=== PATIENT | female | born 1945 | race Caucasian/White ===

== ENCOUNTER 2017-02-17 09:03 | Day surgery (SDC) | payer MEDICARE, BC ==
[~2017-02-17 09:03] MED LIST: BESIFLOXACIN HCL 0.6% OPH SUSP 5 ML BOTTLE OD PRN; CYCLOPENTOLATE 0.2%/PHENYLEPHRINE 1% OPH SOLN 2 ML OD PRN; KETOROLAC TROMETHAMINE 0.45% 4 DROP/0.4 ML DROPERETTE OD PRN; MIDAZOLAM 2 MG/2 ML INJ ONE; TETRACAINE HCL 0.5% OPH SOLN 0.6 ML DROPERETTE OD PRN; TROPICAMIDE 1% OPH SOLN 3 ML OD PRN
[2017-02-17] MEDS ORDERED: LIDOCAINE 1% INJ-PF (10 MG/ML) 30 ML SDV ONE (09:06)
[2017-02-17] MEDS ORDERED: EPINEPHRINE INJ/PF 1 MG/1 ML AMPULE ONE (09:06)
[2017-02-17] MEDS ORDERED: CHONDR SU A NA/HYALUR INTRAOC KIT (SURGICARE) ONE (09:06)
[2017-02-17] MEDS ORDERED: TOBRAMYCIN SULFATE/DEXAMETH OPH OINTMENT 3.5 GM ONE (09:06)
[2017-02-17] MEDS: CYCLOPENTOLATE 0.2%/PHENYLEPHRINE 1% OPH SOLN 2 ML OD PRN ×3 (09:32→09:58)
[2017-02-17] MEDS: TROPICAMIDE 1% OPH SOLN 3 ML OD PRN ×3 (09:32→09:58)
[2017-02-17] MEDS: BESIFLOXACIN HCL 0.6% OPH SUSP 5 ML BOTTLE OD PRN ×2 (09:33→09:45)
[2017-02-17] MEDS: TETRACAINE HCL 0.5% OPH SOLN 0.6 ML DROPERETTE OD PRN ×2 (09:34→10:05)
[2017-03-03] MEDS ORDERED: KETOROLAC TROMETHAMINE 0.45% 4 DROP/0.4 ML DROPERETTE OS PRN (05:00)
[2017-03-03] MEDS ORDERED: BESIFLOXACIN HCL 0.6% OPH SUSP 5 ML BOTTLE OS PRN (05:00)
[2017-03-03] MEDS ORDERED: TROPICAMIDE 1% OPH SOLN 3 ML OS PRN (05:00)
[2017-03-03] MEDS ORDERED: LIDOCAINE 3.5% OPH GEL/PF 1 ML/TUBE OS PRN (05:00)
[2017-03-03] MEDS ORDERED: CYCLOPENTOLATE 0.2%/PHENYLEPHRINE 1% OPH SOLN 2 ML OS PRN (05:00)
== END 2017-02-17 11:16 | disposition home or self-care (01) ==
LOC: SC 09:03
PROVIDERS: ATTEND Ophthalmology
PROC: 08RJ3JZ Replacement of Right Lens with Synthetic Substitute, Percutaneous Approach (ICD-10-PCS; principal; 2017-02-17 10:00)
DX: H25.11 Age-related nuclear cataract, right eye (principal); J45.909 Unspecified asthma, uncomplicated; K21.9 Gastro-esophageal reflux disease without esophagitis; I10 Essential (primary) hypertension; E89.0 Postprocedural hypothyroidism; Z96.653 Presence of artificial knee joint, bilateral; Z79.51 Long term (current) use of inhaled steroids; Z79.899 Other long term (current) drug therapy; Z88.0 Allergy status to penicillin; Z88.1 Allergy status to other antibiotic agents; Z88.8 Allergy status to other drugs, medicaments and biological substances; Z79.82 Long term (current) use of aspirin
CPT/HCPCS: 66984; V2630; J2250; J3490 ×3; A9270; J0171; 142

== ENCOUNTER 2017-03-03 07:16 | Day surgery (SDC) | payer MEDICARE, BC ==
[~2017-03-03 07:16] MED LIST changes: -BESIFLOXACIN HCL 0.6% OPH SUSP 5 ML BOTTLE OD PRN; -CYCLOPENTOLATE 0.2%/PHENYLEPHRINE 1% OPH SOLN 2 ML OD PRN; -KETOROLAC TROMETHAMINE 0.45% 4 DROP/0.4 ML DROPERETTE OD PRN; +KETOROLAC TROMETHAMINE 0.45% 4 DROP/0.4 ML DROPERETTE OS PRN; -MIDAZOLAM 2 MG/2 ML INJ ONE; -TETRACAINE HCL 0.5% OPH SOLN 0.6 ML DROPERETTE OD PRN; -TROPICAMIDE 1% OPH SOLN 3 ML OD PRN
[2017-03-03] MEDS: CYCLOPENTOLATE 0.2%/PHENYLEPHRINE 1% OPH SOLN 2 ML OS PRN ×3 (07:49→08:09)
[2017-03-03] MEDS: TROPICAMIDE 1% OPH SOLN 3 ML OS PRN ×3 (07:49→08:09)
[2017-03-03] MEDS: BESIFLOXACIN HCL 0.6% OPH SUSP 5 ML BOTTLE OS PRN ×3 (07:49→08:46)
[2017-03-03] MEDS: LIDOCAINE 3.5% OPH GEL/PF 1 ML/TUBE OS PRN ×3 (07:50→08:21)
[2017-03-03] MEDS ORDERED: CHONDR SU A NA/HYALUR INTRAOC KIT (SURGICARE) ONE (07:59)
[2017-03-03] MEDS ORDERED: EPINEPHRINE INJ/PF 1 MG/1 ML AMPULE ONE (07:59)
[2017-03-03] MEDS ORDERED: TOBRAMYCIN SULFATE/DEXAMETH OPH OINTMENT 3.5 GM ONE (07:59)
[2017-03-03] MEDS ORDERED: LIDOCAINE 1% INJ-PF (10 MG/ML) 30 ML SDV ONE (07:59)
[2017-03-03] MEDS ORDERED: MIDAZOLAM 2 MG/2 ML INJ ONE ×2 (08:25→08:53)
[2017-03-03] MEDS ORDERED: FENTANYL CITRATE INJ/PF 100 MCG/2 ML AMPUL ONE (08:26)
== END 2017-03-03 09:26 | disposition home or self-care (01) ==
LOC: SC 07:16
PROVIDERS: ATTEND Ophthalmology
PROC: 08RK3JZ Replacement of Left Lens with Synthetic Substitute, Percutaneous Approach (ICD-10-PCS; principal; 2017-03-03 08:15)
DX: H25.12 Age-related nuclear cataract, left eye (principal); J45.909 Unspecified asthma, uncomplicated; K21.9 Gastro-esophageal reflux disease without esophagitis; I10 Essential (primary) hypertension; E05.90 Thyrotoxicosis, unspecified without thyrotoxic crisis or storm; Z96.653 Presence of artificial knee joint, bilateral; E89.0 Postprocedural hypothyroidism; Z98.41 Cataract extraction status, right eye; Z79.82 Long term (current) use of aspirin; Z79.51 Long term (current) use of inhaled steroids; Z79.899 Other long term (current) drug therapy; Z88.0 Allergy status to penicillin; Z88.8 Allergy status to other drugs, medicaments and biological substances; Z88.6 Allergy status to analgesic agent
CPT/HCPCS: 66984; V2630; J2250; J3490 ×3; A9270 ×2; J0171; 142; J3010

== ENCOUNTER 2017-07-17 14:55 | Emergency (ER) | payer MEDICARE, BC ==
[2017-07-17] MEDS ORDERED: ASPIRIN 81 MG TABLET, CHEWABLE PO ONE ×2 (15:05→15:38)
--- NOTE | 2017-07-17 15:27 | RADIOLOGY REPORT (SQ) ---
EXAM DESCRIPTION: CHEST SINGLE VIEW COMPLETED DATE/TIME: 07/17/2017 3:19 pm REASON FOR STUDY: cp COMPARISON: 12/24/2012 EXAM PARAMETERS: NUMBER OF VIEWS: One view. TECHNIQUE: Single frontal radiographic view of the chest acquired. RADIATION DOSE: NA LIMITATIONS: None. FINDINGS: LUNGS AND PLEURA: No opacities, masses or pneumothorax. No pleural effusion. MEDIASTINUM AND HILAR STRUCTURES: No masses. Contour normal. HEART AND VASCULAR STRUCTURES: Heart normal in size. Normal vasculature. BONES: No acute findings. HARDWARE: None in the chest. OTHER: No other significant finding. IMPRESSION: NO ACUTE RADIOGRAPHIC FINDING IN THE CHEST. TECHNICAL DOCUMENTATION: JOB ID: [id number] [employer]- All Rights Reserved
[2017-07-17] MEDS ORDERED: METOCLOPRAMIDE HCL ORAL SOLN 10 MG/10 ML UDCUP PO ONE (16:05)
[2017-07-17] MEDS ORDERED: MAG HYDROX/AL HYDROX/SIMETH SUSP 30 ML UDCUP PO ONE (16:05)
[2017-07-17] MEDS ORDERED: LIDOCAINE 2% VISCOUS SOLN 20 ML UDCUP PO ONE (16:05)
[2017-07-17] MEDS ORDERED: IPRATROPIUM/ALBUTEROL 0.5-2.5 MG/3 ML AMPUL NEB ONE (16:05)
[2017-07-17 16:16] LABS: HEMATOCRIT 34.4 % (36.0-47.0); HEMOGLOBIN 11.3 g/dL (12.0-15.5); HGB HCT DIFFERENCE -0.5; MEAN CORPUSCULAR HEMOGLOBIN 28.4 pg (27.0-33.4); MEAN CORPUSCULAR VOLUME 86 fl (80-97); RED CELL DISTRIBUTION WIDTH 15.2 % (11.5-14.0); WHITE BLOOD COUNT 9.5 10^3/uL (4.0-10.5)
[2017-07-17 16:20] LABS: ALANINE AMINOTRANSFERASE 32 U/L (9-52); ALBUMIN 3.4 g/dL (3.5-5.0); ALKALINE PHOSPHATASE 74 U/L (38-126); ANION GAP 9 (5-19); ASPARTATE AMINO TRANSFERASE 16 U/L (14-36); BLOOD UREA NITROGEN 12 mg/dL (7-20); CALCIUM 8.9 mg/dL (8.4-10.2); CARBON DIOXIDE 28 mmol/L (22-30); CHLORIDE 105 mmol/L (98-107); CREATINE KINASE 97 U/L (30-135); GLUCOSE 132 mg/dL (75-110); POTASSIUM 3.4 mmol/L (3.6-5.0); SODIUM 142.3 mmol/L (137-145); TOTAL PROTEIN 7.4 g/dL (6.3-8.2)
[2017-07-17 16:21] LABS: BILIRUBIN,TOTAL < 0.1 mg/dL (0.2-1.3)
[2017-07-17] MEDS ORDERED: ALBUTEROL SULFATE 0.083% NEB 2.5 MG/3 ML AMPUL NEB ONE (16:26)
[2017-07-17 16:32] LABS: CREATINE KINASE MB 0.72 ng/mL (<4.55)
[2017-07-17 16:35] LABS: ABSOLUTE EOSINOPHILS# (MANUAL) 0.1 10^3/uL (0.0-0.6); BASOPHILS % (MANUAL) 0 % (0-2); EOSINOPHILS % (MANUAL) 1 % (0-6); LYMPHOCYTES % (MANUAL) 43 % (13-45); TOTAL CELLS COUNTED 100; TROPONIN I < 0.012 ng/mL
[2017-07-17 16:36] LABS: RBC MORPHOLOGY COMMENT NORMO-CYTIC/CHROMIC
--- NOTE | 2017-07-17 17:39 | ER Document Report ---
ED General - General TRAVEL OUTSIDE OF THE [place] IN LAST 30 DAYS: No - HPI Patient complains to provider of: Chest pain <GRETA SMITH - Last Filed: 07/17/17 19:08> <JOE APPIAH - Last Filed: 07/17/17 20:44> - General Chief Complaint: Chest Pain Stated Complaint: CHEST PAIN Time Seen by Provider: 07/17/17 15:16 - HPI Notes: Patient coming in for chest pain. Patient states chest pains on the right and left side of her chest. Patient states he decided sternum. Started acutely today around noon to 1:00. Patient does have history of asthma patient states this is different than her asthma attacks in the past different times chest wall pain. Patient states she did become short of breath and chest pain started. Denies any recent travel. Patient upon my evaluation resting comfortably. Denies fevers chills nausea vomiting diarrhea denies cough that is productive. (GRETA SMITH) - Related Data Allergies/Adverse Reactions: azithromycin Allergy (Intermediate, Verified 07/17/17 14:56) Hives benzoin Allergy (Intermediate, Verified 07/17/17 14:56) Hives fluticasone [From Flovent Diskus] Allergy (Intermediate, Verified 07/17/17 14:56 ) Shortness of Breath Penicillins Allergy (Mild, Verified 07/17/17 14:56) serevent Allergy (Intermediate, Uncoded 07/17/17 14:56) Shortness of Breath NSAIDs Allergy (Mild, Uncoded 07/17/17 14:56) Confusion Past Medical History - Social History Smoking Status: Unknown if Ever Smoked Family History: Reviewed & Not Pertinent Patient has suicidal ideation: No Patient has homicidal ideation: No - Past Medical History Cardiac Medical History: Reports: Hx Hypertension Denies: Hx Heart Attack Pulmonary Medical History: Reports: Hx Asthma Neurological Medical History: Denies: Hx Cerebrovascular Accident, Hx Seizures Renal/ Medical History: Denies: Hx Peritoneal Dialysis GI Medical History: Reports: Hx Hiatal Hernia. Denies: Hx Hepatitis, Hx Ulcer Infectious Medical History: Denies: Hx Hepatitis Past Surgical History: Reports: Hx Hysterectomy, Hx Orthopedic Surgery - meniscus tear, carpal tennel, right knee replacement, Hx Thyroid Surgery, Hx Tonsillectomy. Denies: Hx Mastectomy, Hx Open Heart Surgery, Hx Pacemaker - Immunizations Hx Diphtheria, Pertussis, Tetanus Vaccination: Yes <GRETA SMITH - Last Filed: 07/17/17 19:08> Review of Systems - Review of Systems Constitutional: No symptoms reported EENT: No symptoms reported Cardiovascular: Chest pain Respiratory: Cough, Short of breath, Wheezing Gastrointestinal: No symptoms reported Genitourinary: No symptoms reported Female Genitourinary: No symptoms reported Musculoskeletal: No symptoms reported Skin: No symptoms reported Hematologic/Lymphatic: No symptoms reported Neurological/Psychological: No symptoms reported -: Yes All other systems reviewed and negative <GRETA SMITH - Last Filed: 07/17/17 19:08> Physical Exam - Vital signs Interpretation: Normal - General General appearance: Appears well, Alert - HEENT Head: Normocephalic, Atraumatic Eyes: Normal Pupils: PERRL - Respiratory Respiratory status: No respiratory distress Chest status: Tender - Tenderness to palpate of the anterior chest wall Breath sounds: Normal Chest palpation: Normal - Cardiovascular Rhythm: Regular Heart sounds: Normal auscultation Murmur: No - Abdominal Inspection: Normal Distension: No distension Bowel sounds: Normal Tenderness: Nontender Organomegaly: No organomegaly - Back Back: Normal, Nontender - Extremities General upper extremity: Normal inspection, Nontender, Normal color, Normal ROM , Normal temperature General lower extremity: Normal inspection, Nontender, Normal color, Normal ROM , Normal temperature, Normal weight bearing. No: Wyatt's sign - Neurological Neuro grossly intact: Yes Cognition: Normal Orientation: AAOx4 Naty Coma Scale Eye Opening: Spontaneous Temperance Coma Scale Verbal: Oriented Naty Coma Scale Motor: Obeys Commands Naty Coma Scale Total: 15 Speech: Normal Motor strength normal: LUE, RUE, LLE, RLE Sensory: Normal - Psychological Associated symptoms: Normal affect, Normal mood - Skin Skin Temperature: Warm Skin Moisture: Dry Skin Color: Normal <GRETA SMITH - Last Filed: 07/17/17 19:08> - Vital signs Vitals: Pulse Ox 97 07/17/17 15:12 Course - Laboratory Result Diagrams: 07/17/17 15:25 07/17/17 15:25 <GRETA SMITH - Last Filed: 07/17/17 19:08> - Laboratory Result Diagrams: 07/17/17 15:25 07/17/17 15:25 <JOE APPIAH - Last Filed: 07/17/17 20:44> - Re-evaluation Re-evalutation: 07/17/17 17:30 I suspect the patient's distribution of pain is more consistent with chest wall pain cardiac. Will perform d-dimer troponin testing initial troponin is negative will repeat. EKG does not show any concerning pathology chest x-rays negative. If second troponin negative d-dimer negative more likely discharge patient home 07/17/17 17:32 Patient with a heart score of only 3 (GRETA SMITH) 07/17/17 20:43 CT reported by radiologist as negative for pulmonary embolism but the patient had multiple small pulmonary nodules. The patient was exercised in the ER with the pulse oximeter she did not drop her pulse oximeter reading from 98%. Subsequently she was discharged home with instruction to follow-up with cigarette vendor. (JOE APPIAH) - Vital Signs Vital signs: Temp Pulse Resp BP Pulse Ox 97.6 F 102 H 18 120/74 98 07/17/17 15:39 07/17/17 15:39 07/17/17 20:03 07/17/17 20:03 07/17/17 20:03 - Laboratory Laboratory results interpreted by me: 07/17/17 07/17/17 07/17/17 15:25 15:25 16:07 Hgb 11.3 L Hct 34.4 L RDW 15.2 H D-Dimer 0.86 H Potassium 3.4 L Est GFR (Non-Af Amer) 49 L Glucose 132 H Total Bilirubin < 0.1 L Albumin 3.4 L Discharge <GRETA SMITH - Last Filed: 07/17/17 19:08> <JOE APPIAH - Last Filed: 07/17/17 20:44> - Discharge Clinical Impression: Chest wall pain Condition: Good Disposition: HOME, SELF-CARE Instructions: Anti-Inflammatory Medication ([facility]), Chest Wall Pain ([facility]), Chest Pain of Unclear Cause ([facility]) Additional Instructions: Your examination today and laboratory studies not reveal any signs of blood clot within your lungs infection within the lungs cardiac ischemia. I believe your pain is more related to muscle skeletal issue chest wall pain. Because he cannot take anti-inflammatories we will start you on this small dose of steroids prednisone for the next few days. May take Tylenol for the pain. At that she did receive relief with a GI cocktail would also recommend taking Zantac. Return to ER symptoms worsen follow-up with your primary care physician and follow with the computer operations specialist provided. Prescriptions: Prednisone [Deltasone] 40 mg PO DAILY 4 Days tablet Ranitidine HCl [Zantac 75 mg Tablet] 75 mg PO BID #30 tablet Referrals: GLORAI HILL MD [Primary Care Provider] - Follow up as needed MELONIE JEFF MD [ACTIVE STAFF] - Follow up as needed ZA ALSTON MD [ACTIVE STAFF] - Follow up as needed
--- NOTE | 2017-07-17 18:17 | EKG REPORT ---
SEVERITY:- ABNORMAL ECG - SINUS TACHYCARDIA NONSPECIFIC ST-T CHANGES DIFFUSE : Confirmed by: Shiv Rodney MD 17-Jul-2017 18:16:29
[2017-07-17] MEDS ORDERED: NORMAL SALINE 500 ML IV ONE (18:23)
[2017-07-17] MEDS ORDERED: PREDNISONE 20 MG TABLET PO ONE (18:24)
--- NOTE | 2017-07-17 19:27 | RADIOLOGY REPORT (SQ) ---
EXAM DESCRIPTION: CTA CHEST COMPLETED DATE/TIME: 07/17/2017 6:52 pm REASON FOR STUDY: elevated d dimer COMPARISON: None. TECHNIQUE: CT scan of the chest performed using helical scanning technique with dynamic intravenous contrast injection. Images reviewed with lung, soft tissue and bone windows. Reconstructed coronal and sagittal MPR images reviewed. Additional 3 dimensional post-processing performed to develop Maximal Intensity Projection images (LA P). All images stored on PACS. All CT scanners at this facility use dose modulation, iterative reconstruction, and/or weight based d osing when appropriate to reduce radiation dose to as low as reasonably achievable (ALARA). [facility]: Dose Right [facility]: CareDose [facility]: Dose Right [facility]: Teradose 4D [facility]: Socialcam CONTRAST TYPE AND DOSE: contrast/concentration: Isovue 370.00 mg/ml; Total Contrast Delivered: 76.0 ml; Total Saline Delivered: 80.0 ml Contrast bolus optimized for the pulmonary arteries. Not diagnostic for the aorta. RENAL FUNCTION: BUN 12 creatinine 1.1 RADIATION DOSE: CT Rad equipment meets quality standard of care and radiation dose reduction techniq ues were employed. CTDIvol: 18.2 - 33.1 mGy. DLP: 643 mGy-cm. . LIMITATIONS: None. FINDINGS: LUNGS AND PLEURA: Several nodules in both lungs, the largest in the right upper lobe measu ring about 0.6 x 2.3 cm. No effusions. AORTA AND GREAT VESSELS: No aneurysm. Contrast bolus not optimized for the aorta. HEART: No pericardial effusion. No significant coronary artery calcifications. PULMONARY ARTERIES: No emboli visualized in the main pulmonary arteries or the segmental branches. HILAR AND MEDIASTINAL STRUCTURES: No identified masses or abnormal nodes. HARDWARE: None in the chest. UPPER ABDOMEN: Hiatal hernia. THYROID AND OTHER SOFT TISSUES: No masses. No adenopathy. BONES: No acute or significant finding. 3D MIPS: Confirm above findings. OTHER: No other significant finding. IMPRESSION: 1. No evidence of pulmonary embolus. 2. Pulmonary nodules which will need followup. COMMENT: Quality ID # [id number]: Final reports with documentation of one or more dose reduction techniques (e.g., Automated exposure control, adjustment of the mA and/or kV according to patient size, use of iterative reconstruction technique) TECHNICAL DOCUMENTATION: JOB ID: [id number]™- All Rights Reserved
[2017-07-17 20:48] VITALS: BP 125/61
== END 2017-07-17 20:55 | disposition home or self-care (01) ==
LOC: ER 14:55
DX: R07.89 Other chest pain (principal)
CPT/HCPCS: 93005; 94640; 99285; 36415; 82553; 82550; 83690; 85025; 80053; 84484; 85379; 71010; 71275; 93010; A9270 ×4; J3490; J7040; J7512

== ENCOUNTER 2018-07-14 10:24 | Observation (INO) | payer MEDICARE, BC ==
[2018-07-14] MEDS ORDERED: ASPIRIN 81 MG TABLET, CHEWABLE PO ONE ×2 (10:42→10:51)
--- NOTE | 2018-07-14 10:56 | ER Document Report ---
ED Cardiac - General Chief Complaint: Chest Pain Stated Complaint: CHEST PAIN Time Seen by Provider: 07/14/18 10:44 TRAVEL OUTSIDE OF THE [place] IN LAST 30 DAYS: No - HPI Patient complains to provider of: Chest tightness Was the onset of pain: Gradual Is the pain a: New problem Chest pain location: Substernal Quality of pain: Tightness Chest pain radiation location: None Severity now: Moderate Chest pain precipitating factors: Physical Exertion Cardiac risk factors: Hypertension, + Family history Positive cardiac history: No Associated symptoms: Diaphoresis, Lightheaded, Nausea/vomiting Exacerbated by: Denies Relieved by: Nothing Similar symptoms previously: No Notes: Patient is a 72-year-old female that presents to the emergency department for [facility] complaint of chest pain. Patient states starting yesterday she started having a tightness in her chest. It seemed to resolve last night and then was back this morning. She states it was not bothering her much until she was up walking into a store. She then became acutely diaphoretic and nauseated. The tightness seemed to increase. Currently she states her nausea has resolved and the diaphoresis is improving. The tightness has been unchanged for the last few hours. She denies history of cardiac disease in the past. She states she had a stress test done about 2 years ago that was normal. She has never had a cardiac catheterization done. She states her mother had cardiac disease but she believes she was in her 60s or 70s when her cardiac issues began. Patient does take a baby aspirin daily but has not taken it yet today. Patient states she feels like she has a weight sitting on her chest which is making it hard to breathe Past Medical History: Hypertension, hiatal hernia, asthma Past Surgical History: Reviewed in chart Social History: Never smoker. Denies alcohol and drug use Family History: Reviewed and noncontributory for presenting illness Allergies: Reviewed, see documented allergy list. REVIEW OF SYSTEMS: CONSTITUTIONAL : No fever No chills diaphoresis No recent illness EENT: No vision changes No congestion No sore throat CARDIOVASCULAR: chest pain No palpitations RESPIRATORY: No shortness of breath No cough difficulty breathing GASTROINTESTINAL: No abdominal pain No nausea No vomiting No diarrhea GENITOURINARY: No dysuria No hematuria No difficulty urinating MUSCULOSKELETAL: No back pain No leg pain No arm pain SKIN: No rashes No lesions LYMPHATIC: No swollen, enlarged glands. NEUROLOGICAL: No lightheadedness No headache No weakness No paresthesias PSYCHIATRIC: No anxiety No depression PHYSICAL EXAMINATION: Vital signs reviewed, nursing noted reviewed. GENERAL: Mildly diaphoretic, well-nourished HEAD: Atraumatic, normocephalic. EYES: Eyes appear normal, extraocular movements intact, sclera anicteric, conjunctiva are normal. ENT: nares patent, oropharynx clear without exudates. Moist mucous membranes. NECK: Normal range of motion, supple without lymphadenopathy LUNGS: Breath sounds clear to auscultation bilaterally and equal. No wheezes rales or rhonchi. HEART: Regular rate and rhythm without murmurs. +2/4 bilateral radial and DP pulses ABDOMEN: Soft, nontender, normoactive bowel sounds. No rebound, guarding, or rigidity. No masses appreciated. EXTREMITIES: Nontender, good range of motion, no pitting or edema. NEUROLOGICAL: No focal neurological deficits. Moves all extremities spontaneously Motor and sensory grossly intact on exam. PSYCH: Normal mood, normal affect. SKIN: Warm, normal turgor, no rashes or lesions noted on exposed skin - Related Data Allergies/Adverse Reactions: azithromycin Allergy (Intermediate, Verified 07/17/17 14:56) Hives benzoin Allergy (Intermediate, Verified 07/17/17 14:56) Hives fluticasone [From Flovent Diskus] Allergy (Intermediate, Verified 07/17/17 14:56) Shortness of Breath Penicillins Allergy (Mild, Verified 07/17/17 14:56) serevent Allergy (Intermediate, Uncoded 07/17/17 14:56) Shortness of Breath NSAIDs Allergy (Mild, Uncoded 07/17/17 14:56) Confusion Past Medical History - Social History Smoking Status: Never Smoker Family History: Reviewed & Not Pertinent - Past Medical History Cardiac Medical History: Reports: Hx Hypertension Denies: Hx Heart Attack Pulmonary Medical History: Reports: Hx Asthma Neurological Medical History: Denies: Hx Cerebrovascular Accident, Hx Seizures Renal/ Medical History: Denies: Hx Peritoneal Dialysis GI Medical History: Reports: Hx Hiatal Hernia. Denies: Hx Hepatitis, Hx Ulcer Infectious Medical History: Denies: Hx Hepatitis Past Surgical History: Reports: Hx Hysterectomy, Hx Orthopedic Surgery - meniscus tear, carpal tennel, right knee replacement, Hx Thyroid Surgery, Hx Tonsillectomy. Denies: Hx Mastectomy, Hx Open Heart Surgery, Hx Pacemaker - Immunizations Hx Diphtheria, Pertussis, Tetanus Vaccination: Yes Physical Exam - Vital signs Vitals: Temp Pulse Resp BP Pulse Ox 97.7 F 82 20 130/55 H 95 07/14/18 10:38 07/14/18 10:38 07/14/18 10:38 07/14/18 10:38 07/14/18 10:38 Course - Re-evaluation Re-evalutation: 07/14/18 10:56 Vitals reviewed. Nursing notes reviewed. Patient given aspirin and nitro for her chest discomfort. Her EKG shows no acute change since prior. She was placed on cardiac monitoring. She is mildly diaphoretic but in no acute distress. 07/14/18 12:22 Patient reevaluated and after 2 sublingual nitro states her chest pain has almost completely resolved. She is no longer diaphoretic and states she is feeling much better. Her initial negative troponin. Chest x-ray showed no acute process. Patient will be admitted to the hospital for observation, continue telemetry monitoring and repeat troponins. She is in agreement with this plan. She is stable at time of admission. Case discussed with admitting physician Dr. Renner. Laboratory 07/14/18 07/14/18 07/14/18 11:00 11:00 11:00 WBC 7.9 RBC 4.14 Hgb 12.1 Hct 35.2 L MCV 85 MCH 29.1 MCHC 34.3 RDW 14.4 H Plt Count 185 Seg Neutrophils % 38.2 L Lymphocytes % 54.8 H Monocytes % 5.2 Eosinophils % 1.4 Basophils % 0.4 Absolute Neutrophils 3.0 Absolute Lymphocytes 4.3 Absolute Monocytes 0.4 Absolute Eosinophils 0.1 Absolute Basophils 0.0 Sodium 137.6 Potassium 3.9 Chloride 104 Carbon Dioxide 28 Anion Gap 6 BUN 15 Creatinine 0.66 Est GFR ( Amer) > 60 Est GFR (Non-Af Amer) > 60 Glucose 88 Calcium 9.2 Total Bilirubin 0.4 Direct Bilirubin 0.2 Neonat Total Bilirubin Not Reportable Neonat Direct Bilirubin Not Reportable Neonat Indirect Bili Not Reportable AST 15 ALT 15 Alkaline Phosphatase 75 Troponin I < 0.012 Total Protein 7.7 Albumin 3.3 L Chest X-Ray 07/14/18 10:43 IMPRESSION: NO ACUTE RADIOGRAPHIC FINDING IN THE CHEST. 07/14/18 12:34 - Vital Signs Vital signs: Temp Pulse Resp BP Pulse Ox 97.7 F 82 20 130/55 H 95 07/14/18 10:38 07/14/18 10:38 07/14/18 10:38 07/14/18 10:38 07/14/18 10:38 - Laboratory Result Diagrams: 07/14/18 11:00 07/14/18 11:00 Laboratory results interpreted by me: 07/14/18 07/14/18 11:00 11:00 Hct 35.2 L RDW 14.4 H Seg Neutrophils % 38.2 L Lymphocytes % 54.8 H Albumin 3.3 L - EKG Interpretation by Me Additional EKG results interpreted by me: 07/14/18 10:55 Interpreted by myself 1030: Normal sinus rhythm, rate 85, normal axis, no ectopy, no ST elevation, no change since 07/17/17 Discharge - Discharge Clinical Impression: Chest pain Qualifiers: Chest pain type: unspecified Qualified Code(s): R07.9 - Chest pain, unspecified Condition: Stable Disposition: ADMITTED OBSERVATION Admitting Provider: Hospitalist Unit Admitted: Telemetry
[2018-07-14] MEDS: NITROGLYCERIN 0.4 MG/TAB 25 TAB/BOTTLE SL PRN ×5 (11:10→16:14)
[2018-07-14 11:31] LABS: ABSOLUTE EOSINOPHILS # (AUTO) 0.1 10^3/uL (0.0-0.6); ABSOLUTE LYMPHOCYTES (AUTO) 4.3 10^3/uL (0.5-4.7); ABSOLUTE MONOCYTES (AUTO) 0.4 10^3/uL (0.1-1.4); BASOPHILS % (AUTO) 0.4 % (0-2); EOSINOPHILS % (AUTO) 1.4 % (0-6); HEMATOCRIT 35.2 % (36.0-47.0); HEMOGLOBIN 12.1 g/dL (12.0-15.5); LYMPHOCYTES % (AUTO) 54.8 % (13-45); MEAN CORPUSCULAR HEMOGLOBIN 29.1 pg (27.0-33.4); MEAN CORPUSCULAR HGB CONC 34.3 g/dL (32.0-36.0); MEAN CORPUSCULAR VOLUME 85 fl (80-97); MONOCYTES % (AUTO) 5.2 % (3-13); PLATELET COUNT 185 10^3/uL (150-450); RED BLOOD COUNT 4.14 10^6/uL (3.72-5.28); RED CELL DISTRIBUTION WIDTH 14.4 % (11.5-14.0); SEGMENTED NEUTROPHILS % (AUTO) 38.2 % (42-78); TOTAL CELLS COUNTED % (AUTO) 100 %; WHITE BLOOD COUNT 7.9 10^3/uL (4.0-10.5)
[2018-07-14 11:49] LABS: ALANINE AMINOTRANSFERASE 15 U/L (9-52); ALBUMIN 3.3 g/dL (3.5-5.0); ALKALINE PHOSPHATASE 75 U/L (38-126); ANION GAP 6 (5-19); ASPARTATE AMINO TRANSFERASE 15 U/L (14-36); BILIRUBIN,DIRECT 0.2 mg/dL (0.0-0.4); BILIRUBIN,TOTAL 0.4 mg/dL (0.2-1.3); BLOOD UREA NITROGEN 15 mg/dL (7-20); CALCIUM 9.2 mg/dL (8.4-10.2); CARBON DIOXIDE 28 mmol/L (22-30); CHLORIDE 104 mmol/L (98-107); GLUCOSE 88 mg/dL (75-110); POTASSIUM 3.9 mmol/L (3.6-5.0); SODIUM 137.6 mmol/L (137-145); TOTAL PROTEIN 7.7 g/dL (6.3-8.2)
--- NOTE | 2018-07-14 11:49 | RADIOLOGY REPORT (SQ) ---
EXAM DESCRIPTION: CHEST SINGLE VIEW COMPLETED DATE/TIME: 07/14/2018 11:41 am REASON FOR STUDY: bed 15 cp COMPARISON: 12/24/2012. EXAM PARAMETERS: NUMBER OF VIEWS: One view. TECHNIQUE: Single frontal radiographic view of the chest acquired. RADIATION DOSE: NA LIMITATIONS: None. FINDINGS: LUNGS AND PLEURA: No opacities, masses or pneumothorax. No pleural effusion. MEDIASTINUM AND HILAR STRUCTURES: No masses. Contour normal. HEART AND VASCULAR STRUCTURES: Heart normal in size. Normal vasculature. BONES: No acute findings. HARDWARE: None in the chest. OTHER: No other significant finding. IMPRESSION: NO ACUTE RADIOGRAPHIC FINDING IN THE CHEST. TECHNICAL DOCUMENTATION: JOB ID: [id number] [email or web address]- All Rights Reserved Reading location - IP/workstation name: [email or web address]
[2018-07-14] MEDS ORDERED: REGADENOSON INJ 0.4 MG/5 ML DISP.SYRIN IV ONE (12:04)
[2018-07-14] MEDS ORDERED: ONDANSETRON HCL INJ/PF 4 MG/2 ML SDV IV PRN (13:01)
[2018-07-14] MEDS ORDERED: OXYCODONE-ACETAMINOPHEN 5-325 MG TABLET PO PRN (13:01)
--- NOTE | 2018-07-14 13:17 | PDOC H&P ---
History of Present Illness Admission Date/PCP: 07/14/18 13:01 RUDOLPH EDWARDS History of Present Illness: LAINE AWAD is a 72 year old female with past medical history of bronchial asthma, hypertension and hiatal hernia presents with chief complaint of chest pain. Patient reports that she has been in her usual baseline state of health up until this morning when she started to have chest pain described as heaviness as if something sitting on her chest. It is nonradiating and is not associated with deep breathing. No aggravating factor but improved with sublingual nitroglycerin. At the time of the chest pain patient has associated cool clammy scale diaphoresis palpitation and she was nauseous. No history of fevers, chills, chest pain, vomiting, abdominal pain, diarrhea, urinary complaints, dizziness, headache or blurry vision. Initially she thinks her hiatal hernia is acting up but after taking her Zantac she has not any improvement. Her blood works and her chest x-ray is negative Past Medical History Cardiac Medical History: Reports: Hypertension Denies: Myocardial Infarction Pulmonary Medical History: Reports: Asthma Neurological Medical History: Denies: Seizures GI Medical History: Reports: Hiatal Hernia Denies: Hepatitis Hematology: Denies: Anemia, Sickle Cell Disease Past Surgical History Past Surgical History: Reports: Hysterectomy, Orthopedic Surgery - meniscus tear, carpal tennel, right knee replacement, Tonsillectomy Denies: Amputation, Mastectomy, Pacemaker Social History Smoking Status: Never Smoker Frequency of Alcohol Use: None Hx Recreational Drug Use: No Hx Prescription Drug Abuse: No - Advance Directive Resuscitation Status: Full Code Family History Family History: Reviewed & Not Pertinent, CAD Parental Family History Reviewed: Yes Children Family History Reviewed: Yes Sibling(s) Family History Reviewed.: Yes Medication/Allergy Allergies/Adverse Reactions: azithromycin Allergy (Intermediate, Verified 07/17/17 14:56) Hives benzoin Allergy (Intermediate, Verified 07/17/17 14:56) Hives fluticasone [From Flovent Diskus] Allergy (Intermediate, Verified 07/17/17 14:56) Shortness of Breath Penicillins Allergy (Mild, Verified 07/17/17 14:56) serevent Allergy (Intermediate, Uncoded 07/17/17 14:56) Shortness of Breath NSAIDs Allergy (Mild, Uncoded 07/17/17 14:56) Confusion Review of Systems Constitutional: ABSENT: chills, fever(s), headache(s), weight gain, weight loss Eyes: ABSENT: visual disturbances Ears: ABSENT: hearing changes Cardiovascular: PRESENT: chest pain. ABSENT: dyspnea on exertion, edema, orthropnea, palpitations Respiratory: ABSENT: cough, hemoptysis Gastrointestinal: PRESENT: nausea. ABSENT: abdominal pain, constipation, diar jonathon, hematemesis, hematochezia, vomiting Genitourinary: ABSENT: dysuria, hematuria Musculoskeletal: ABSENT: joint swelling Integumentary: PRESENT: diaphoresis. ABSENT: rash, wounds Neurological: ABSENT: abnormal gait, abnormal speech, confusion, dizziness, focal weakness, syncope Psychiatric: ABSENT: anxiety, depression, homidical ideation, suicidal ideation Endocrine: ABSENT: cold intolerance, heat intolerance, polydipsia, polyuria Hematologic/Lymphatic: ABSENT: easy bleeding, easy bruising Physical Exam Vital Signs: Temp Pulse Resp BP Pulse Ox 97.7 F 82 20 130/55 H 95 07/14/18 10:38 07/14/18 10:38 07/14/18 10:38 07/14/18 10:38 07/14/18 10:38 General appearance: PRESENT: no acute distress, well-developed, well-nourished Head exam: PRESENT: atraumatic, normocephalic Eye exam: PRESENT: conjunctiva pink, EOMI, PERRLA. ABSENT: scleral icterus Ear exam: PRESENT: normal external ear exam Mouth exam: PRESENT: moist, tongue midline Neck exam: ABSENT: carotid bruit, JVD, lymphadenopathy, thyromegaly Respiratory exam: PRESENT: clear to auscultation jimena. ABSENT: rales, rhonchi, wheezes Cardiovascular exam: PRESENT: RRR. ABSENT: diastolic murmur, rubs, systolic murmur Pulses: PRESENT: normal dorsalis pedis pul Vascular exam: PRESENT: normal capillary refill GI/Abdominal exam: PRESENT: normal bowel sounds, soft. ABSENT: distended, guarding, mass, organolmegaly, rebound, tenderness Rectal exam: PRESENT: deferred Extremities exam: PRESENT: full ROM. ABSENT: calf tenderness, clubbing, pedal edema Neurological exam: PRESENT: alert, awake, oriented to person, oriented to place, oriented to time, oriented to situation, CN II-XII grossly intact. ABSENT: motor sensory deficit Psychiatric exam: PRESENT: appropriate affect, normal mood. ABSENT: homicidal ideation, suicidal ideation Skin exam: PRESENT: dry, intact, warm. ABSENT: cyanosis, rash Results Laboratory Results: 07/14/18 11:00 07/14/18 11:00 07/14/18 07/14/18 11:00 11:00 WBC 7.9 RBC 4.14 Hgb 12.1 Hct 35.2 L MCV 85 MCH 29.1 MCHC 34.3 RDW 14.4 H Plt Count 185 Seg Neutrophils % 38.2 L Lymphocytes % 54.8 H Monocytes % 5.2 Eosinophils % 1.4 Basophils % 0.4 Absolute Neutrophils 3.0 Absolute Lymphocytes 4.3 Absolute Monocytes 0.4 Absolute Eosinophils 0.1 Absolute Basophils 0.0 Sodium 137.6 Potassium 3.9 Chloride 104 Carbon Dioxide 28 Anion Gap 6 BUN 15 Creatinine 0.66 Est GFR ( Amer) > 60 Est GFR (Non-Af Amer) > 60 Glucose 88 Calcium 9.2 Total Bilirubin 0.4 AST 15 ALT 15 Alkaline Phosphatase 75 Total Protein 7.7 Albumin 3.3 L 07/14/18 11:00 Troponin I < 0.012 Impressions: Chest X-Ray 07/14/18 10:43 IMPRESSION: NO ACUTE RADIOGRAPHIC FINDING IN THE CHEST. Assessment & Plan - Diagnosis (1) Chest pain Qualifiers: Chest pain type: unspecified Qualified Code(s): R07.9 - Chest pain, unspecified Is this a current diagnosis for this admission?: Yes Plan: To rule out acute coronary syndrome patient will be admitted for observation. Stress test in the morning. Nitro and Percocet for chest pain. Repeat EKG and troponin. (2) Bronchial asthma Qualifiers: Asthma severity: mild Is this a current diagnosis for this admission?: Yes Plan: In remission (3) Hypertension Qualifiers: Hypertension type: essential hypertension Qualified Code(s): I10 - Essential (primary) hypertension Is this a current diagnosis for this admission?: Yes Plan: Continue her home medication (4) Hiatal hernia Is this a current diagnosis for this admission?: Yes Plan: Stable
--- NOTE | 2018-07-14 13:18 | EKG REPORT ---
SEVERITY:- ABNORMAL ECG - SINUS RHYTHM CONSIDER POSTERIOR INFARCT : Confirmed by: Shiv Rodney MD 14-Jul-2018 13:17:38
[2018-07-14] MEDS: ENOXAPARIN SODIUM INJ 40 MG/0.4 ML DISP.SYRIN SUBCUT SCH (14:39)
[2018-07-14] MEDS: LANSOPRAZOLE 30 MG TAB.RAP.DR PO SCH (17:26)
[2018-07-15] MEDS: NITROGLYCERIN 0.4 MG/TAB 25 TAB/BOTTLE SL PRN (02:00)
[2018-07-15] MEDS: LANSOPRAZOLE 30 MG TAB.RAP.DR PO SCH ×2 (05:59→16:16)
[2018-07-15] MEDS: ENOXAPARIN SODIUM INJ 40 MG/0.4 ML DISP.SYRIN SUBCUT SCH (11:00)
--- NOTE | 2018-07-15 13:54 | PDOC PROGRESS REPORT ---
Subjective Progress Note for:: 07/08/18 Subjective:: I seen patient propped up in bed and enjoying her lunch. Her EKG, and troponin are within normal limits. She has cardiac stress test this morning and returned negative. Despite not revealing test to send stress test patient continues to have intermittent chest pain which is relieved by nitroglycerin sublingual. Patient might have cardiac syndrome X. I discussed the case with Dr. Hernandez and will admit the patient to keep her overnight for close follow-up and to start her on Norvasc and isosorbide. If patient remained chest pain-free she will be a candidate for discharge tomorrow Reason For Visit: CHEST PAIN Physical Exam Vital Signs: Temp Pulse Resp BP Pulse Ox 98.1 F 76 19 129/48 H 99 07/15/18 07:52 07/15/18 07:52 07/15/18 07:52 07/15/18 07:52 07/15/18 07:52 Intake & Output 07/14/18 07/15/18 07/16/18 06:59 06:59 06:59 Weight 144.3 kg 83.915 kg General appearance: PRESENT: no acute distress, well-developed, well-nourished Head exam: PRESENT: atraumatic, normocephalic Eye exam: PRESENT: conjunctiva pink, EOMI, PERRLA. ABSENT: scleral icterus Ear exam: PRESENT: normal external ear exam Mouth exam: PRESENT: moist, tongue midline Neck exam: ABSENT: carotid bruit, JVD, lymphadenopathy, thyromegaly Respiratory exam: PRESENT: clear to auscultation jimena. ABSENT: rales, rhonchi, wheezes Cardiovascular exam: PRESENT: RRR. ABSENT: diastolic murmur, rubs, systolic murmur Pulses: PRESENT: normal dorsalis pedis pul Vascular exam: PRESENT: normal capillary refill GI/Abdominal exam: PRESENT: normal bowel sounds, soft. ABSENT: distended, gu arding, mass, organolmegaly, rebound, tenderness Rectal exam: PRESENT: deferred Extremities exam: PRESENT: full ROM. ABSENT: calf tenderness, clubbing, pedal edema Neurological exam: PRESENT: alert, awake, oriented to person, oriented to place, oriented to time, oriented to situation, CN II-XII grossly intact. ABSENT: mot or sensory deficit Psychiatric exam: PRESENT: appropriate affect, normal mood. ABSENT: homicidal ideation, suicidal ideation Skin exam: PRESENT: dry, intact, warm. ABSENT: cyanosis, rash Results Laboratory Results: 07/14/18 11:00 07/14/18 11:00 07/15/18 01:12 TSH 1.33 07/14/18 07/14/18 07/14/18 11:00 14:07 19:15 Troponin I < 0.012 < 0.012 < 0.012 07/15/18 01:12 Troponin I < 0.012 Impressions: Chest X-Ray 07/14/18 10:43 IMPRESSION: NO ACUTE RADIOGRAPHIC FINDING IN THE CHEST. Assessment & Plan - Diagnosis (1) Chest pain Qualifiers: Chest pain type: unspecified Qualified Code(s): R07.9 - Chest pain, unspecified Is this a current diagnosis for this admission?: Yes Plan: Negative EKG, troponin and stress test. We will start the patient on isosorbide and amlodipine. (2) Bronchial asthma Qualifiers: Asthma severity: mild Is this a current diagnosis for this admission?: Yes Plan: In remission (3) Hypertension Qualifiers: Hypertension type: essential hypertension Qualified Code(s): I10 - Essential (primary) hypertension Is this a current diagnosis for this admission?: Yes Plan: Continue her home medication (4) Hiatal hernia Is this a current diagnosis for this admission?: Yes Plan: Stable
[2018-07-15] MEDS ORDERED: ISOSORBIDE MONONITRATE 60 MG TAB.ER.24H PO SCH (14:00)
[2018-07-15] MEDS: ISOSORBIDE MONONITRATE 30 MG TAB.ER.24H PO SCH (16:16)
--- NOTE | 2018-07-15 20:08 | DRAGON STRESS TEST REPORT ---
Intravenous Lexiscan Cardiolite stress test using single photon emmision computerized tomography. Date of procedure: 07/15/2018. Ordering Provider: Dr. Renner. Patient's status: In Patient. Indication: Chest pain. Coronary risk factors: Age, hypertension, and family history of coronary artery disease. Resting EKG: Sinus Rhythm. Within Normal Limits. Stress EKG: No changes of ischemia. The patient had no chest pain or discomfort, and there were no arrhythmias seen. Reason for termination: Protocol. Conclusions: Normal EKG and hemodynamic response to IV Lexiscan. Nuclear data: At rest the patient was given 12.81 millicuries of technetium 99m sestamibi injected intravenously. As per protocol rest non gated SPECT images were obtained. Subsequently the patient was given intravenous Lexiscan at a dose of 0.4 mg in 5 mL intravenously, followed by flush with normal saline. Subsequently the stress dose of 39.8 millicuries of technetium 99m sestamibi was injected intravenously. As per protocol stress gated images were obtained. Nuclear interpretation: Review of images showed that all segments of the myocardium had normal perfusion at rest, and normal perfusion post stress with IV Lexiscan. All segments of the myocardium had normal motion, contraction, and thickening by gated study. T. I D. ratio was normal at 1.06. There is no transient ischemic calcification of the left ventricle. Computer read rest, and stress left ventricular ejection fraction were 60 %, and 60 %, respectively. Conclusion: 1. There is no scintigraphic evidence of Lexiscan induced myocardial ischemia. 2. There is no scintigraphic evidence of myocardial infarction/scar. Recommendations: Aggressive risk factor modification, and treating the underlying co- morbidities. MTDD
--- NOTE | 2018-07-15 20:40 | PDOC CONSULTATION ---
Consultation-Blank Consultation: CARDIOLOGY CONSULTATION by Dr. Mary Hernandez on 07/15/2018. REASON FOR CONSULTATION: Patient with continued chest pain in spite of a negative Lexiscan Cardiolite stress test.
[2018-07-15] MEDS ORDERED: MONTELUKAST SODIUM 10 MG TABLET PO SCH (22:00)
[2018-07-16] MEDS ORDERED: LEVOTHYROXINE SODIUM 0.088 MG TABLET PO SCH (06:00)
[2018-07-16] MEDS: LANSOPRAZOLE 30 MG TAB.RAP.DR PO SCH (06:32)
[2018-07-16] MEDS: ISOSORBIDE MONONITRATE 30 MG TAB.ER.24H PO SCH (09:05)
[2018-07-16] MEDS: ENOXAPARIN SODIUM INJ 40 MG/0.4 ML DISP.SYRIN SUBCUT SCH (11:02)
--- NOTE | 2018-07-16 11:30 | PDOC DISCHARGE SUMMARY ---
General - Admit/Disc Date/PCP Admission Date/Primary Care Provider: 07/14/18 13:01 RUDOLPH EDWARDS Discharge Date: 07/16/18 - Discharge Diagnosis (1) Chest pain Is this a current diagnosis for this admission?: Yes (2) Bronchial asthma Is this a current diagnosis for this admission?: Yes (3) Hypertension Is this a current diagnosis for this admission?: Yes (4) Hiatal hernia Is this a current diagnosis for this admission?: Yes - Additional Information Resuscitation Status: Full Code Home Medications: Albuterol Sulfate [Proair Hfa Inhalation Aerosol 8.5 gm Mdi] 2 puff IH Q4HP PRN 07/14/18 Aspirin [Aspirin 81 mg Chewable Tablet] 81 mg PO DAILY 07/14/18 Calcium Carbonate/Vitamin D3 [Calcium 600 + Vit D 400 Tablet] 1 tab PO DAILY 07/14/18 Cetirizine HCl [Zyrtec 10 mg Tablet] 10 mg PO DAILY 07/14/18 Hydrochlorothiazide [Hydrodiuril 25 mg Tablet] 25 mg PO DAILY 07/14/18 Levothyroxine Sodium [Synthroid 0.088 mg Tablet] 88 mcg PO Q6AM 07/14/18 Montelukast Sodium [Singulair 10 mg Tablet] 10 mg PO QHS 07/14/18 Multivitamin [Tab-A-Bill (Multiple Vitamin) Tablet] 1 tab PO DAILY 07/14/18 Ranitidine HCl [Zantac 75 mg Tablet] 75 mg PO BID 07/14/18 History of Present Illness History of Present Illness: LAINE AWAD is a 72 year old female with past medical history of bronchial asthma, hypertension and hiatal hernia presents with chief complaint of chest pain. Patient reports that she has been in her usual baseline state of health up until this morning when she started to have chest pain described as heaviness as if something sitting on her chest. It is nonradiating and is not associated with deep breathing. No aggravating factor but improved with sublingual nitroglycerin. At the time of the chest pain patient has associated cool clammy scale diaphoresis palpitation and she was nauseous. No history of fevers, chills, chest pain, vomiting, abdominal pain, diarrhea, urinary complaints, dizziness, headache or blurry vision. Initially she thinks her hiatal hernia is acting up but after taking her Zantac she has not any improvement. Her blood works and her chest x-ray is negative Hospital Course Hospital Course: I seen patient sitting on chair. She remained chest pain-free throughout the n ight. Her EKG, and troponin are within normal limits. She has cardiac stress test yesterday and it was negative. This morning patient reevaluated by Dr. Hernandez who cleared her for discharge and will follow her in his office. I have a long discussion with the patient regarding coronary artery disease and its consequences. Advised her also to keep up with her appointment with Dr. Hernandez. Her vital signs and her labs are within normal limits. Patient is stable enough to be discharged today. I will send her home with Imdur 30 mg p.o. daily. Physical Exam Vital Signs: Temp Pulse Resp BP Pulse Ox 97.7 F 76 18 114/47 L 98 07/16/18 08:12 07/16/18 08:12 07/16/18 08:12 07/16/18 08:12 07/16/18 08:12 Intake & Output 07/15/18 07/16/18 07/17/18 06:59 06:59 06:59 Intake Total 1987 Balance 1987 Weight 144.3 kg 66.2 kg General appearance: PRESENT: no acute distress, well-developed, well-nourished Head exam: PRESENT: atraumatic, normocephalic Eye exam: PRESENT: conjunctiva pink, EOMI, PERRLA. ABSENT: scleral icterus Ear exam: PRESENT: normal external ear exam Mouth exam: PRESENT: moist, tongue midline Neck exam: ABSENT: carotid bruit, JVD, lymphadenopathy, thyromegaly Respiratory exam: PRESENT: clear to auscultation jimena. ABSENT: rales, rhonchi, wheezes Cardiovascular exam: PRESENT: RRR. ABSENT: diastolic murmur, rubs, systolic murmur Pulses: PRESENT: normal dorsalis pedis pul Vascular exam: PRESENT: normal capillary refill GI/Abdominal exam: PRESENT: normal bowel sounds, soft. ABSENT: distended, guarding, mass, organolmegaly, rebound, tenderness Rectal exam: PRESENT: deferred Extremities exam: PRESENT: full ROM. ABSENT: calf tenderness, clubbing, pedal edema Neurological exam: PRESENT: alert, awake, oriented to person, oriented to place, oriented to time, oriented to situation, CN II-XII grossly intact. ABSENT: motor sensory deficit Psychiatric exam: PRESENT: appropriate affect, normal mood. ABSENT: homicidal ideation, suicidal ideation Skin exam: PRESENT: dry, intact, warm. ABSENT: cyanosis, rash Results Laboratory Results: 07/14/18 11:00 07/14/18 11:00 07/14/18 07/14/18 07/14/18 11:00 14:07 19:15 Troponin I < 0.012 < 0.012 < 0.012 07/15/18 01:12 Troponin I < 0.012 Impressions: Chest X-Ray 07/14/18 10:43 IMPRESSION: NO ACUTE RADIOGRAPHIC FINDING IN THE CHEST. Qualifiers - * PATIENT BEING DISCHARGED WITH ANY OF THE FOLLOWING DIAGNOSIS: No
[2018-07-16 12:12] VITALS: BP 103/45
== END 2018-07-16 12:39 | disposition home or self-care (01) ==
LOC: ER 10:24 → EH 13:01 → UNDOADMOB 13:01 → 4N 16:48
PROVIDERS: ADMIT Internal Medicine; ATTEND Internal Medicine
DX: R07.9 Chest pain, unspecified (principal); I10 Essential (primary) hypertension; K44.9 Diaphragmatic hernia without obstruction or gangrene; J45.998 Other asthma; Z82.49 Family history of ischemic heart disease and other diseases of the circulatory system; Z88.0 Allergy status to penicillin; Z96.651 Presence of right artificial knee joint; Z88.1 Allergy status to other antibiotic agents; Z79.82 Long term (current) use of aspirin; Z88.8 Allergy status to other drugs, medicaments and biological substances
CPT/HCPCS: 93005; 99285; 36415 ×2; 84443; 85025; 80053; 84484 ×2; 93017; 71045; 78452; 93010; G0378 ×4; A9500; J2785; A9270 ×7; J1650 ×2; J3490 ×3; Q9969

== ENCOUNTER 2018-07-21 11:18 | Emergency (ER) | payer MEDICARE, BC ==
[2018-07-21] MEDS ORDERED: METOCLOPRAMIDE HCL ORAL SOLN 10 MG/10 ML UDCUP PO ONE (11:50)
[2018-07-21] MEDS ORDERED: LIDOCAINE 2% VISCOUS SOLN 20 ML UDCUP PO ONE (11:50)
[2018-07-21] MEDS ORDERED: MAG HYDROX/AL HYDROX/SIMETH SUSP 30 ML UDCUP PO ONE (11:50)
[2018-07-21 12:12] LABS: HEMATOCRIT 35.4 % (36.0-47.0); HEMOGLOBIN 11.9 g/dL (12.0-15.5); MEAN CORPUSCULAR HGB CONC 33.7 g/dL (32.0-36.0); MEAN CORPUSCULAR VOLUME 86 fl (80-97); PLATELET COUNT 199 10^3/uL (150-450); RED BLOOD COUNT 4.12 10^6/uL (3.72-5.28); RED CELL DISTRIBUTION WIDTH 14.6 % (11.5-14.0); WHITE BLOOD COUNT 9.3 10^3/uL (4.0-10.5)
--- NOTE | 2018-07-21 12:27 | RADIOLOGY REPORT (SQ) ---
EXAM DESCRIPTION: CHEST SINGLE VIEW COMPLETED DATE/TIME: 07/21/2018 12:00 pm REASON FOR STUDY: cp COMPARISON: None. EXAM PARAMETERS: NUMBER OF VIEWS: One view. TECHNIQUE: Single frontal radiographic view of the chest acquired. RADIATION DOSE: NA LIMITATIONS: None. FINDINGS: LUNGS AND PLEURA: No opacities, masses or pneumothorax. No pleural effusion. MEDIASTINUM AND HILAR STRUCTURES: No masses. Contour normal. HEART AND VASCULAR STRUCTURES: Heart normal in size. Normal vasculature. BONES: No acute findings. HARDWARE: None in the chest. OTHER: No other significant finding. IMPRESSION: NO ACUTE RADIOGRAPHIC FINDING IN THE CHEST. TECHNICAL DOCUMENTATION: JOB ID: [id number] [employer]- All Rights Reserved Reading location - IP/workstation name: [email or web address]
[2018-07-21 12:28] LABS: ALANINE AMINOTRANSFERASE 25 U/L (9-52); ALBUMIN 3.4 g/dL (3.5-5.0); ALKALINE PHOSPHATASE 75 U/L (38-126); ASPARTATE AMINO TRANSFERASE 17 U/L (14-36); BILIRUBIN,DIRECT 0.2 mg/dL (0.0-0.4); BILIRUBIN,TOTAL 0.3 mg/dL (0.2-1.3); BLOOD UREA NITROGEN 14 mg/dL (7-20); CALCIUM 9.2 mg/dL (8.4-10.2); CREATINE KINASE 71 U/L (30-135); GLUCOSE 95 mg/dL (75-110); POTASSIUM 3.9 mmol/L (3.6-5.0); TOTAL PROTEIN 7.8 g/dL (6.3-8.2)
[2018-07-21 12:34] LABS: CARBON DIOXIDE 34 mmol/L (22-30); CHLORIDE 103 mmol/L (98-107); SODIUM 141.2 mmol/L (137-145)
[2018-07-21 12:36] LABS: ABSOLUTE MONOCYTES # (MANUAL) 0.2 10^3/uL (0.1-1.4); ABSOLUTE NEUTROPHILS# (MANUAL) 2.8 10^3/uL (1.7-8.2); BASOPHILS % (MANUAL) 1 % (0-2); EOSINOPHILS % (MANUAL) 2 % (0-6); LYMPHOCYTES % (MANUAL) 63 % (13-45); MONOCYTES % (MANUAL) 2 % (3-13); PLATELET CLUMPS PRESENT; RBC MORPHOLOGY COMMENT NORMO-CYTIC/CHROMIC; SEGMENTED NEUTROPHILS % (MAN) 30 % (42-78); TOTAL CELLS COUNTED 100
[2018-07-21 12:37] LABS: ANION GAP 4 (5-19)
[2018-07-21 12:41] LABS: TROPONIN I < 0.012 ng/mL
[2018-07-21] MEDS ORDERED: NITROGLYCERIN 2% OINTMENT 1 GM PACKET TP ONE (13:56)
[2018-07-21] MEDS ORDERED: ENOXAPARIN SODIUM INJ 100 MG/1 ML DISP.SYRIN SUBCUT SCH (14:00)
[2018-07-21 14:17] LABS: INTERNATIONAL RATION (INR) 0.96; PROTHROMBIN TIME 13.2 SEC (11.4-15.4)
[2018-07-21 14:18] LABS: PARTIAL THROMBOPLASTIN TIME 27.4 SEC (23.5-35.8)
--- NOTE | 2018-07-21 14:40 | ER Document Report ---
ED General - General Chief Complaint: Chest Pain Stated Complaint: CHEST PAIN Time Seen by Provider: 07/21/18 11:44 TRAVEL OUTSIDE OF THE [place] IN LAST 30 DAYS: No - HPI Patient complains to provider of: Continue chest pain Notes: Patient coming in for continuing of chest pain. Patient was recently admitted to the hospital with a negative stress test followed up with cardiology placed on Imdur sick continue to have chest pain feeling like a sandbag sitting on her chest moving from right to left. Patient states discussed with Dr. Hernandez her continuous conveyor screen drier increased her dose of Imdur which she did take today however continued to have pain and pain was continually relieved with nitroglycerin given by EMS patient otherwise denies any recent travel denies any fevers chills nausea vomiting diarrhea. Patient does states she has a history of hiatal hernia and elevated cholesterol. Patient is resting comfortably upon my evaluation - Related Data Allergies/Adverse Reactions: azithromycin Allergy (Intermediate, Verified 07/21/18 11:20) Hives benzoin Allergy (Intermediate, Verified 07/21/18 11:20) Hives fluticasone [From Flovent Diskus] Allergy (Intermediate, Verified 07/21/18 11:20) Shortness of Breath Penicillins Allergy (Mild, Verified 07/21/18 11:20) apple Allergy (Verified 07/21/18 11:20) banana Allergy (Verified 07/21/18 11:20) blackberry Allergy (Verified 07/21/18 11:20) crab Allergy (Verified 07/21/18 11:20) cucumber Allergy (Verified 07/21/18 11:20) Fish Containing Products Allergy (Verified 07/21/18 11:20) legumes Allergy (Verified 07/21/18 11:20) melon Allergy (Verified 07/21/18 11:20) monosodium glutamate Allergy (Verified 07/21/18 11:20) nut - unspecified Allergy (Verified 07/21/18 11:20) oats Allergy (Verified 07/21/18 11:20) pear Allergy (Verified 07/21/18 11:20) poppyseed oil Allergy (Verified 07/21/18 11:20) rice Allergy (Verified 07/21/18 11:20) squash Allergy (Verified 07/21/18 11:20) strawberry Allergy (Verified 07/21/18 11:20) sunflower seed Allergy (Verified 07/21/18 11:20) tomato Allergy (Verified 07/21/18 11:20) watermelon Allergy (Verified 07/21/18 11:20) serevent Allergy (Intermediate, Uncoded 07/21/18 11:20) Shortness of Breath NSAIDs Allergy (Mild, Uncoded 07/21/18 11:20) Confusion Past Medical History - Social History Smoking Status: Never Smoker Chew tobacco use (# tins/day): No Frequency of alcohol use: None Drug Abuse: None Family History: Reviewed & Not Pertinent, CAD Patient has suicidal ideation: No Patient has homicidal ideation: No - Past Medical History Cardiac Medical History: Reports: Hx Hypertension Denies: Hx Heart Attack Pulmonary Medical History: Reports: Hx Asthma Neurological Medical History: Denies: Hx Cerebrovascular Accident, Hx Seizures Renal/ Medical History: Denies: Hx Peritoneal Dialysis GI Medical History: Reports: Hx Hiatal Hernia. Denies: Hx Hepatitis, Hx Ulcer Infectious Medical History: Denies: Hx Hepatitis Past Surgical History: Reports: Hx Hysterectomy, Hx Orthopedic Surgery - meniscus tear, carpal tennel, right knee replacement, Hx Thyroid Surgery, Hx Tonsillectomy. Denies: Hx Mastectomy, Hx Open Heart Surgery, Hx Pacemaker - Immunizations Hx Diphtheria, Pertussis, Tetanus Vaccination: Yes Review of Systems - Review of Systems Constitutional: No symptoms reported EENT: No symptoms reported Cardiovascular: Chest pain Respiratory: No symptoms reported Gastrointestinal: No symptoms reported Genitourinary: No symptoms reported Female Genitourinary: No symptoms reported Musculoskeletal: No symptoms reported Skin: No symptoms reported Hematologic/Lymphatic: No symptoms reported Neurological/Psychological: No symptoms reported -: Yes All other systems reviewed and negative Physical Exam - Vital signs Vitals: Temp Pulse Resp BP Pulse Ox 98 F 71 22 H 146/64 H 97 07/21/18 11:30 07/21/18 11:30 07/21/18 11:30 07/21/18 11:30 07/21/18 11:30 Interpretation: Normal - General General appearance: Appears well, Alert - HEENT Head: Normocephalic, Atraumatic Eyes: Normal Pupils: PERRL - Respiratory Respiratory status: No respiratory distress Chest status: Nontender Breath sounds: Normal Chest palpation: Normal - Cardiovascular Rhythm: Regular Heart sounds: Normal auscultation Murmur: No - Abdominal Inspection: Normal Distension: No distension Bowel sounds: Normal Tenderness: Nontender Organomegaly: No organomegaly - Back Back: Normal, Nontender - Extremities General upper extremity: Normal inspection, Nontender, Normal color, Normal ROM, Normal temperature General lower extremity: Normal inspection, Nontender, Normal color, Normal ROM, Normal temperature, Normal weight bearing. No: Wyatt's sign - Neurological Neuro grossly intact: Yes Cognition: Normal Orientation: AAOx4 Naty Coma Scale Eye Opening: Spontaneous Naty Coma Scale Verbal: Oriented Naty Coma Scale Motor: Obeys Commands Naty Coma Scale Total: 15 Speech: Normal Motor strength normal: LUE, RUE, LLE, RLE Sensory: Normal - Psychological Associated symptoms: Normal affect, Normal mood - Skin Skin Temperature: Warm Skin Moisture: Dry Skin Color: Normal Course - Re-evaluation Re-evalutation: 07/21/18 14:39 I was notified by the patient's continuous conveyor screen drier Dr. Flowers that he is Dieudonne spoken to Dr. Tomi Del Rosario of the cardiology team at [facility] and agreed to accept patient in transfer for cardiac catheterization. Before this patient was given a GI cocktail with some improvement of her pain. EKG laboratory studies otherwise are negative I did discuss the case with Dr. Alcantar currently on for the cardiology group at [facility] and has agreed to set the patient in transfer requesting a dose of Lovenox be given to the patient. We will continue Nitropaste for her pain patient otherwise was made aware of the need and request for transfer agrees to transfer at this time patient has remained stable - Vital Signs Vital signs: Temp Pulse Resp BP Pulse Ox 98 F 71 18 115/58 L 95 07/21/18 11:30 07/21/18 11:30 07/21/18 13:02 07/21/18 13:02 07/21/18 13:02 - Laboratory Result Diagrams: 07/21/18 11:57 07/21/18 11:57 Laboratory results interpreted by me: 07/21/18 07/21/18 11:57 11:57 Hgb 11.9 L Hct 35.4 L RDW 14.6 H Seg Neuts % (Manual) 30 L Lymphocytes % (Manual) 63 H Monocytes % (Manual) 2 L Abs Lymphs (Manual) 6.0 H Carbon Dioxide 34 H Anion Gap 4 L Albumin 3.4 L Discharge - Discharge Clinical Impression: Chest pain Qualifiers: Chest pain type: unspecified Qualified Code(s): R07.9 - Chest pain, unspecified Hypertension Qualifiers: Hypertension type: essential hypertension Qualified Code(s): I10 - Essential (primary) hypertension Condition: Good Disposition: [facility]ITAL Referrals: RUDOLPH EDWARDS MD [Primary Care Provider] - Follow up as needed
[2018-07-21 16:16] VITALS: BP 132/74
--- NOTE | 2018-07-22 15:09 | EKG REPORT ---
SEVERITY:- NORMAL ECG - SINUS RHYTHM : Confirmed by: Harman Langston 22-Jul-2018 15:08:42
== END 2018-07-21 16:00 | disposition short-term general hospital (02) ==
LOC: ER 11:18
DX: R07.9 Chest pain, unspecified (principal); I10 Essential (primary) hypertension; J45.909 Unspecified asthma, uncomplicated; Z88.1 Allergy status to other antibiotic agents; Z88.8 Allergy status to other drugs, medicaments and biological substances; Z88.0 Allergy status to penicillin; Z91.018 Allergy to other foods; Z91.013 Allergy to seafood; Z82.49 Family history of ischemic heart disease and other diseases of the circulatory system
CPT/HCPCS: 93005; 99285; 96372; 36415; 82553; 82550; 85025; 85610; 85730; 80053; 84484; 71045; 93010; A9270 ×2; J3490; J1650